=== PATIENT | female | born 1945 | race Asian ===

== ENCOUNTER 2018-07-23 16:00 | Emergency (ER) | payer OTHER ==
[~2018-07-23] VITALS: Ht 162.6 cm; Wt 95.3 kg
--- NOTE | 2018-07-23 16:03 | NUR ---
Placed patient in room 6. Patient bib BLS after feeling weak and dizzy following a tooth extraction.
[2018-07-23 16:05] VITALS: BP_SYST 168
--- NOTE | 2018-07-23 16:22 | NUR ---
ER at bedside examining patient.
[2018-07-23] MEDS ORDERED: IBUP-1969 PO (16:31)
[2018-07-23] MEDS ORDERED: FURO-150 PO (16:31)
[2018-07-23] MEDS ORDERED: NOR10 PO (16:31)
[2018-07-23] MEDS ORDERED: METO25TA3 PO (16:31)
[2018-07-23] MEDS ORDERED: LEVO100T9 PO (16:31)
[2018-07-23] MEDS ORDERED: AMOX500C2 PO (16:31)
--- NOTE | 2018-07-23 16:34 | NUR ---
patient currently getting a CXR at the bedside.
[2018-07-23 16:57] LABS: BASOPHILS # (AUTO) 0.1 K/uL (0.0-0.2); BASOPHILS % (AUTO) 0.9 % (0.0-2.0); EOSINOPHILS # (AUTO) 0.1 K/uL (0.0-0.4); EOSINOPHILS % (AUTO) 0.4 % (0.0-4.0); HEMATOCRIT 39.9 % (36-48); LYMPHOCYTES # (AUTO) 1.4 K/uL (1.0-5.5); LYMPHOCYTES % (AUTO) 9.4 % (20.5-51.5); MEAN CORPUSCULAR HEMOGLOBIN 29 pg (27-31); MEAN CORPUSCULAR HGB CONC 33 % (32-36); MEAN CORPUSCULAR VOLUME 88 fL (79.0-98.0); NEUTROPHILS # (AUTO) 11.8 K/uL (1.8-7.7); NEUTROPHILS % (AUTO) 82.3 % (40.0-70.0); PLATELET COUNT (AUTO) 257 K/uL (130-430); RED BLOOD CELL COUNT(AUTO) 4.53 MIL/uL (4.2-6.2); WHITE BLOOD COUNT (AUTO) 14.3 K/uL (4.8-10.8)
[2018-07-23 17:09] LABS: ANION GAP 5 (5-15); CHLORIDE 101 mmol/L (98-107); CREATININE 0.78 mg/dL (0.55-1.30); GLUCOSE 125 mg/dL (70-99); POTASSIUM 3.6 mmol/L (3.5-5.1); SODIUM SERUM 135 mmol/L (136-145); UREA NITROGEN, BLOOD 14 mg/dL (8-21)
[2018-07-23 17:11] LABS: INR 0.9 (0.8-1.2); PROTHROMBIN TIME 9.6 SECS (9.5-12.5)
[2018-07-23 17:15] LABS: ALANINE AMINOTRANSFERASE 26 U/L (12-78); ASPARTATE AMINOTRANSFERASE 20 U/L (10-37)
--- NOTE | 2018-07-23 17:15 | NUR ---
Patient reports feeling more comfortable at the moment. Current pain level is 3/10 on the left jaw and right LE.
--- NOTE | 2018-07-23 17:53 | NUR ---
Patient given written and verbal discharge instructions and verbalizes understanding. ER MD discussed with patient the results and treatment provided. Patient in stable condition. ID arm band removed. Rx of Tramadol given. Patient educated on pain management and to follow up with PMD. Pain Scale 3/10 .Opportunity for questions provided and answered. Medication side effect fact sheet provided.
[2018-07-23 17:55] VITALS: BP_SYST 131
== END 2018-07-23 17:53 | disposition home or self-care (01) ==
LOC: SED 16:00
DX: R55 Syncope and collapse (principal); R03.0 Elevated blood-pressure reading, without diagnosis of hypertension; Z79.899 Other long term (current) drug therapy
CPT/HCPCS: 36415; 71045; 80053; 82550-TC; 85025; 85610-TC; 85730-TC; 93005; 99284